=== PATIENT | female | born 1955 | race American Indian/Alaskan Native ===

== ENCOUNTER 2021-02-02 13:46 | Outpatient (CLI) | payer MEDICARE ==
--- NOTE | 2021-02-02 16:08 | Vascular Lab Report ---
DUPLEX DOPPLER LOWER EXTREMITY VEINS, BILATERAL INDICATION / CLINICAL INFORMATION: swelling/inflammation. TECHNIQUE: Duplex doppler imaging was performed through the veins of both lower extremities using misael ous compression and other maneuvers. COMPARISON: None available. FINDINGS: RIGHT COMMON FEMORAL VEIN: Negative. RIGHT FEMORAL VEIN: Negative. RIGHT POPLITEAL VEIN: Negative. RIGHT CALF VEINS: Negative. LEFT COMMON FEMORAL VEIN: Negative. LEFT FEMORAL VEIN: Negative. LEFT POPLITEAL VEIN: Negative. LEFT CALF VEINS: Negative. ADDITIONAL FINDINGS: None. IMPRESSION: 1. No sonographic evidence for DVT in either lower extremity. Scribed by: Cristina Rowe RDMS, RVT Scribed: 02/02/2021 2:24 PM I have reviewed the images, agree with this report, and edited this report as needed. Signer Name: Prashanth Morales MD Signed: 02/02/2021 4:04 PM Workstation Name: [id number]
== END 2021-02-02 13:47 | disposition home or self-care (01) ==
LOC: VAS 13:46
PROVIDERS: ATTEND Podiatrist Foot & Ankle Surgery
DX: M79.89 Other specified soft tissue disorders (principal); M79.662 Pain in left lower leg; M79.661 Pain in right lower leg
CPT/HCPCS: 93970